=== PATIENT | female | born 1990 | race Caucasian/White ===

== ENCOUNTER 2017-11-21 10:20 | Inpatient (IN) ==
[2017-11-21 05:44] LABS: Bilirubin,Urine Negative (Negative); Blood,Urine Moderate (Negative); Clarity,Urine Turbid (Clear); Color,Urine Yellow (Yellow); Glucose,Urine (UA) Normal (Normal); Ketones,Urine Negative (Negative); Leukocyte Esterase,Urine Large (Negative); Nitrite,Urine Negative (Negative); PH,Urine 6.5 pH Units (5.0-8.0); Protein,Urine >=300 mg/dL (Neg-Trace); Specific Gravity,Urine 1.013 (1.010-1.025); Urobilinogen,Urine Normal (Normal)
[2017-11-21 05:47] LABS: Hyaline Casts,Urine None Seen per lpf (None-Few); WBC,Urine TNTC per hpf (0-3)
[2017-11-21 05:53] LABS: Amphetamine Screen,Urine Negative ng/mL (Cutoff=1000); Barbiturate Screen,Urine Negative ng/mL (Cutoff=200); Benzodiazepines Screen,Urine Negative ng/mL (Cutoff=200); Cannabinoid Screen,Urine Negative ng/mL (Cutoff = 50); Cocaine Screen,Urine Negative ng/mL (Cutoff= 300); Opiate Screen,Urine Negative ng/mL (Cutoff=300); Phencyclidine Screen,Urine Negative ng/mL (Cutoff=25)
[2017-11-21 05:57] LABS: Bacteria,Urine Few per hpf (None-Few)
[2017-11-21 05:58] LABS: Squamous Epithelial Cell,Urine Moderate per lpf (None-Few)
[2017-11-21 08:18] LABS: Basophils % 0.1 %; Hematocrit 29.3 % (35.3-44.9); Hemoglobin 9.8 g/dL (11.5-15.4); Immature Granulocytes % 0.7 % (0-4); Lymphocytes % 6.2 %; Mean Corpuscular HGB Conc 33.4 g/dL (31.6-35.5); Mean Corpuscular Volume 92.7 fL (83.0-100.0); Mean Platelet Volume 9.7 fL (9.4-12.4); Monocytes # 0.9 K/mcL (0.0-1.3); Monocytes % 5.6 %; Neutrophils # 14.3 K/mcL (1.6-8.9); Platelet Count 273 K/mcL (140-400); Red Blood Count 3.16 M/mcL (3.82-4.97); Red Cell Distribution Width 14.3 % (11.5-14.5); Segmented Neutrophils % 87.4 %
[~2017-11-21 10:20] MED LIST: *HR* Promethazine 25 MG/ML VIAL IVP PRN; Acetaminophen 325 MG TABLET PO PRN; Ondansetron 4 MG/2 ML VIAL IVP PRN; Ringers Solution, Lactated 1,000 ML IVC SCH; Ringers Solution, Lactated 500 ML IVC ONE; cefTRIAXone 1,000 MG in Water for inj. (sterile) 20 ML 10 ML IVP ONE
--- NOTE | 2017-11-21 12:37 | OB/GYN History & Physical ---
Date of Encounter: 11/21/17 Time of Encounter: 12:36 Assessment and Plan (1) 35 weeks gestation of Current visit: Yes Status: Acute (2) Pyelonephritis affecting in third trimester Current visit: Yes Status: Acute 1G rocephin q 24 Repeat labs in am PO pain meds Likely discharge home tomorrow History of Present Illness Chief complaint: flank pain HPI: Ms. Erwin is a 26 year old female at 35 weeks 5 days gestation with an EDB of 12/21/17 dated by early ultrasound who presents with sudden onset of flank pain that started overnight. She endorses good fm and denies ctx, lof, vb. She reports some pain with urination. She has had scant PNC but has been followed by Dr. Thomas through this . This has been uncomplicated. Past Med Surg Social Fam HX - Past Medical History Medical history: no medical history Psychiatric history: no psych history - Past Surgical History Surgical History: no surgical history - Social History Smoking Status: Current every day smoker Packs per day: 1 Smokeless Tobacco Status: No Alcohol use: none Drug use: none - Family History Father Adopted: No Family Member Ethnicity: Non- Living Status: Still Living Hx Family Cardiac Disorders: No Hx Family Respiratory Disorders: No Hx Family Cancer: Yes Hx Family GI Disorders: No Hx Family Genitourinary Disorders: No Hx Family Endocrine Disorder: No Hx Family Musculoskeletal Disorders: No Hx Family Neuromuscular Disorders: No Hx Family Neurologic Disorders: No Hx Family HEENT Disorders: No Hx Family Autoimmune Disorders: No Hx Family Reproductive Disorders: No Hx Family Psychosocial Disorders: No Hx Family Medical Disorders: No Obstetrical History - Pregnancies : 3 Para: 2 Term: 2 (# 1: 07/30/10 , normal spontaneous vaginal delivery (); # 2: , normal spontaneous vaginal delivery ()) : 0 Ab's: 0 Livin Medications and Allergies 3 Allergy/AdvReac Type Severity Reaction Status Date / Time No Known Allergies Allergy Verified 11/21/17 05:27 Review of System OB All systems PM: reviewed and no additional remarkable complaints except as stated Exam - Vital Signs Vital signs: Initial Vital Signs Resp 16 11/21/17 11:04 - Constitutional Constitutional: well developed, well nourished, average body habitus, mild distress - HEENT HEENT: PERRL - Neck Neck exam: full ROM - Lungs Respiratory exam: CTAB - Cardiovascular Cardiovascular exam: RRR, +S1, +S2 - Breasts Breast: bilateral: normal - Abdomen Abdomen: Present: bowel sounds normal, gravid, non tender - Extremities Extremities exam: normal capillary refill, normal inspection, radial pulses palpable and symmetrical - Uterus Uterus exam: Present: normal size, normal contour - Anus/Rectum Anus/Rectum: Present: normal perianal skin - Comments Comments: right flank pain with CVA tenderness Results Result Diagrams: 11/21/17 07:25 Abnormal lab results WBC 16.4 K/mcL (4.3-11.1) H D 11/21/17 07:25 RBC 3.16 M/mcL (3.82-4.97) L 11/21/17 07:25 Hgb 9.8 g/dL (11.5-15.4) L 11/21/17 07:25 Hct 29.3 % (35.3-44.9) L 11/21/17 07:25 Neutrophils # 14.3 K/mcL (1.6-8.9) H 11/21/17 07:25 Urine Clarity Turbid (Clear) A 11/21/17 05:39 Urine Protein >=300 mg/dL (Neg-Trace) H 11/21/17 05:39 Urine Blood Moderate (Negative) H 11/21/17 05:39 Ur Leukocyte Esterase Large (Negative) H 11/21/17 05:39 Urine Microscopic RBC 3-5 per hpf (0-3) H 11/21/17 05:39 Urine Microscopic WBC TNTC per hpf (0-3) H 11/21/17 05:39 Ur Squamous Epith Cells Moderate per lpf (None-Few) H 11/21/17 05:39 Ur Culture Indicated? YES (NO) A 11/21/17 05:39 All other labs normal. - VTE Reasons for not Prescribing Prophylaxis: Treatment not Indicated - Low risk for VTE
[2017-11-21] MEDS: *HR* OxyCODONE/APAP 5/325 TABLET PO PRN (19:55)
[2017-11-22] MEDS: *HR* OxyCODONE/APAP 5/325 TABLET PO PRN (00:14)
[2017-11-22 07:28] LABS: Basophils % 0.3 %; Eosinophils % 0.4 %; Hematocrit 24.7 % (35.3-44.9); Hemoglobin 7.9 g/dL (11.5-15.4); Immature Granulocytes % 0.4 % (0-4); Lymphocytes # 1.8 K/mcL (0.6-4.6); Lymphocytes % 26.3 %; Mean Corpuscular Hemoglobin 30.6 pg (28.0-33.3); Mean Corpuscular Volume 95.7 fL (83.0-100.0); Mean Platelet Volume 9.7 fL (9.4-12.4); Monocytes # 0.6 K/mcL (0.0-1.3); Monocytes % 8.3 %; Neutrophils # 4.4 K/mcL (1.6-8.9); Platelet Count 218 K/mcL (140-400); Red Blood Count 2.58 M/mcL (3.82-4.97); Red Cell Distribution Width 14.6 % (11.5-14.5); Segmented Neutrophils % 64.3 %
[2017-11-22] MEDS ORDERED: cefTRIAXone 1,000 MG in Water for inj. (sterile) 20 ML 10 ML IVP SCH (09:00)
[2017-11-22 09:08] VITALS: BP 100/63
--- NOTE | 2017-11-22 11:22 | Discharge Summary ---
Date of Encounter: 11/22/17 Time of Encounter: 11:22 - Discharge Diagnosis (1) 35 weeks gestation of Priority: Primary Status: Acute Comments: Follow up with Dr. Thomas as already scheduled PTL precautions given Discharge home today (2) Pyelonephritis affecting in third trimester Priority: Secondary Status: Acute Comments: UC showed no growth UTI will be treated with Keflex - Discharge Medications Prescriptions: cephALEXin [Keflex] 500 mg PO BID 10 Days #20 capsule Ferrous Sulfate 325 mg PO BID #60 tablet Home Medications: Ferrous Sulfate 325 mg PO BID #60 tablet 11/22/17 [Rx] cephALEXin [Keflex] 500 mg PO BID 10 Days #20 capsule 11/22/17 [Rx] Allergies/Adverse Reactions: 3 Allergy/AdvReac Type Severity Reaction Status Date / Time No Known Allergies Allergy Verified 11/21/17 05:27 Data Procedures and tests throughout hospitalization: Laboratory Tests 11/21/17 11/21/17 11/21/17 05:39 05:39 07:25 WBC 16.4 H D RBC 3.16 L Hgb 9.8 L Hct 29.3 L MCV 92.7 MCH 31.0 MCHC 33.4 RDW 14.3 Plt Count 273 MPV 9.7 Immature Gran % 0.7 Seg Neutrophils % 87.4 Lymphocytes % 6.2 Monocytes % 5.6 Eosinophils % 0.0 Basophils % 0.1 Neutrophils # 14.3 H Lymphocytes # 1.0 Monocytes # 0.9 Eosinophils # 0.0 Basophils # 0.0 Urine Color Yellow Urine Clarity Turbid A Urine pH 6.5 Ur Specific [place] 1.013 Urine Protein >=300 H Urine Glucose (UA) Normal Urine Ketones Negative Urine Blood Moderate H Urine Nitrite Negative Urine Bilirubin Negative Urine Urobilinogen Normal Ur Leukocyte Esterase Large H Urine Microscopic RBC 3-5 H Urine Microscopic WBC TNTC H Ur Squamous Epith Cells Moderate H Urine Bacteria Few Hyaline Casts None Seen Urine Yeast Test Not Performed Ur Culture Indicated? YES A Urine Opiates Screen Negative Ur Barbiturates Screen Negative Ur Phencyclidine Scrn Negative Ur Amphetamines Screen Negative U Benzodiazepines Scrn Negative Urine Cocaine Screen Negative U Marijuana (THC) Screen Negative Ur Drug Screen Interp See Below 11/22/17 06:54 WBC 6.9 D RBC 2.58 L Hgb 7.9 L D Hct 24.7 L MCV 95.7 MCH 30.6 MCHC 32.0 RDW 14.6 H Plt Count 218 MPV 9.7 Immature Gran % 0.4 Seg Neutrophils % 64.3 Lymphocytes % 26.3 Monocytes % 8.3 Eosinophils % 0.4 Basophils % 0.3 Neutrophils # 4.4 Lymphocytes # 1.8 Monocytes # 0.6 Eosinophils # 0.0 Basophils # 0.0 Urine Color Urine Clarity Urine pH Ur Specific [place] Urine Protein Urine Glucose (UA) Urine Ketones Urine Blood Urine Nitrite Urine Bilirubin Urine Urobilinogen Ur Leukocyte Esterase Urine Microscopic RBC Urine Microscopic WBC Ur Squamous Epith Cells Urine Bacteria Hyaline Casts Urine Yeast Ur Culture Indicated? Urine Opiates Screen Ur Barbiturates Screen Ur Phencyclidine Scrn Ur Amphetamines Screen U Benzodiazepines Scrn Urine Cocaine Screen U Marijuana (THC) Screen Ur Drug Screen Interp Labs on day of discharge: Labs from last 24 hours 11/22/17 06:54 WBC 6.9 D RBC 2.58 L Hgb 7.9 L D Hct 24.7 L MCV 95.7 MCH 30.6 MCHC 32.0 RDW 14.6 H Plt Count 218 MPV 9.7 Immature Gran % 0.4 Seg Neutrophils % 64.3 Lymphocytes % 26.3 Monocytes % 8.3 Eosinophils % 0.4 Basophils % 0.3 Neutrophils # 4.4 Lymphocytes # 1.8 Monocytes # 0.6 Eosinophils # 0.0 Basophils # 0.0 Date of admission: 11/21/17 10:20 Discharging clinician: Leena Lawton Anticipated date of discharge: 11/22/17 - Patient Status Disposition: Home, Self-Care Condition: Good Functional capacity at discharge: independent ambulation Overall status at discharge: patient is progressing back to baseline - Discharge Instructions Follow Up With: Maurice Thomas DO [Partnered Physician] - - Diet and Activity Activity: increase activity as tolerated Diet: regular diet 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 Erwin was admitted with right flank pain with pyelonephritis. UC was run and showed no growth. Flank pain persists so patient will continue outpatient antibiotics for ten days. Incidentally it was discovered that her hgb is low so her iron will be increased to BID. Time Attestation: Total time spent providing and/or coordinating discharge services: Time Spent: Less than 30 minutes Exam - Constitutional Vitals: Temp Pulse Resp BP Pulse Ox 97.5 F L 74 16 100/63 97 11/22/17 09:07 11/22/17 09:07 11/22/17 09:13 11/22/17 09:07 11/22/17 09:07 General appearance IM: A&O X 3 - Respiratory Respiratory exam: Present: CTAB - Cardiovascular Cardiovascular exam IM: Present: RRR, +S1, +S2 - GI/Abdominal GI/Abdominal exam IM: normal bowel sounds, soft, no peritoneal signs - Rectal Rectal exam: deferred - Additional comments: Right flank pain persists but is not as bad. - Extremities Exam Extremities exam IM: Present: normal capillary refill, normal inspection, radial pulses palpable and symmetrical - Neurological Exam Neurological exam: alert, CN II-XII intact, normal gait, oriented X3, reflexes normal, no focal deficits, strengths equal and symetr throughout - VTE Reasons for not Prescribing Prophylaxis: Treatment not Indicated - Low risk for VTE
== END 2017-11-22 11:00 | disposition home or self-care (01) | DRG 566 ==
LOC: 1NENULAB → 1NENUOBS 10:59
PROVIDERS: ADMIT Advanced Practice Midwife; ATTEND Advanced Practice Midwife

== ENCOUNTER 2017-12-13 08:00 | Inpatient (IN) ==
[2017-12-13] MEDS ORDERED: Metoclopramide 10 MG/2 ML VIAL IVP PRN (09:21)
[2017-12-13] MEDS ORDERED: Naloxone 0.4 MG/ML INJ IVP PRN ×2 (09:21→15:13)
[2017-12-13] MEDS ORDERED: Famotidine 20 MG/2 ML VIAL IVP PRN (09:21)
[2017-12-13] MEDS ORDERED: *HR* Nalbuphine 10 MG/ML AMPUL IVP PRN (09:21)
[2017-12-13] MEDS ORDERED: miSOPROStol 100 MCG TABLET PO SCH (09:45)
--- NOTE | 2017-12-13 09:51 | OB/GYN History & Physical ---
Date of Encounter: 12/13/17 Time of Encounter: 09:48 Assessment and Plan (1) and not yet delivered in third trimester Current visit: Yes Status: Acute (2) 39 weeks gestation of Current visit: Yes Status: Acute (3) Encounter for elective induction of labor Current visit: Yes Status: Acute Patient will be induced with Cytotec by mouth will receive an epidural when needed plan is to anticipate vaginal delivery History of Present Illness HPI: Ms. Erwin is a 27 year old female 3 para 2 at 39-0/7 weeks who presented for induction of labor segment term with favorable cervix. Patient was recently seen cervix was favorable at 3-4 cm. Patient had an ultrasound done 2 weeks ago baby weighed 2961 g which was at the 57th percentile with an JOYCE of 17 cm. Patient was advised we would bring her to labor and delivery since she was favorable and we could induce her at 39 weeks. She is having occasional contractions but nothing she can put up time on and she is not leaking any fluid no vaginal bleeding. Patient is A+, rubella positive, Varicella positive, GBS negative. Past Med Surg Social Fam HX - Past Medical History Source: patient, old records reviewed Medical history: no medical history Psychiatric history: no psych history - Past Surgical History Surgical History: no surgical history - Social History Smoking Status: Current every day smoker Smokeless Tobacco Status: No Alcohol use: none Drug use: none Occupational status: employed Current living situation: Home - Independent Activity Level: Independent ambulation Recent Out of Country Travel Within the Last 8 Weeks: No Exposure or Possible Exposure to Illness During Travel: No - Family History Father Adopted: No Family Member Ethnicity: Non- Living Status: Still Living Hx Family Cardiac Disorders: No Hx Family Respiratory Disorders: No Hx Family Cancer: Yes (esoph. [place]) Hx Family GI Disorders: No Hx Family Endocrine Disorder: No Hx Family Neuromuscular Disorders: No Hx Family Neurologic Disorders: No Hx Family HEENT Disorders: No Hx Family Autoimmune Disorders: No - Additional Family History Additional family history: Family history noncontributory Obstetrical History - Pregnancies : 3 Para: 2 Term: 2 : 0 Ab's: 0 Livin Medications and Allergies Ferrous Sulfate 325 mg PO BID #60 tablet 11/22/17 [Rx] Ondansetron HCl [Zofran] 4 mg PO Q8HR PRN 12/13/17 [History] Vit/Iron Fumarate/FA [ Tablet] 1 each PO DAILY 12/13/17 [ History] 3 Allergy/AdvReac Type Severity Reaction Status Date / Time No Known Allergies Allergy Verified 11/21/17 05:27 Review of System OB All systems PM: reviewed and no additional remarkable complaints except as stated Exam - Constitutional Constitutional: well developed, well nourished, no acute distress, average body habitus - HEENT HEENT: EOMI, PERRL, Mucus Membranes Moist - Neck Neck exam: full ROM - Lungs Respiratory exam: CTAB - Cardiovascular Cardiovascular exam: RRR - Abdomen Abdomen: Present: bowel sounds normal, gravid ( heart tones 140s reactive occasional contractions seen) Results All other labs normal. - VTE Reasons for not Prescribing Prophylaxis: Medical contraindication
[2017-12-13 10:23] LABS: Basophils % 0.1 %; Eosinophils % 0.1 %; Hematocrit 31.1 % (35.3-44.9); Hemoglobin 10.1 g/dL (11.5-15.4); Immature Granulocytes % 0.6 % (0-4); Lymphocytes # 1.4 K/mcL (0.6-4.6); Lymphocytes % 20.9 %; Mean Corpuscular HGB Conc 32.5 g/dL (31.6-35.5); Mean Corpuscular Hemoglobin 30.7 pg (28.0-33.3); Mean Corpuscular Volume 94.5 fL (83.0-100.0); Mean Platelet Volume 9.5 fL (9.4-12.4); Monocytes # 0.4 K/mcL (0.0-1.3); Monocytes % 5.4 %; Platelet Count 278 K/mcL (140-400); Red Blood Count 3.29 M/mcL (3.82-4.97); Red Cell Distribution Width 16.5 % (11.5-14.5); Segmented Neutrophils % 72.9 %
--- NOTE | 2017-12-13 12:38 | OB Labor Progress Note ---
Date of Encounter: 12/13/17 Time of Encounter: 12:36 Labor Progress Note - Subjective Subjective: Patient states not really feeling the contractions still having good movement - Cervix Cervix: 3/80/-2 AROM light mec noted - Heart Tones Heart Tones: heart tones 140s reactive - [place]: Contractions every 2 minutes irregular - Plan Plan: We will continue current care if she does not make any cervical change after 2 hours we will augment with Pitocin plan is to anticipate a vaginal delivery
[2017-12-13] MEDS: Ringers Solution, Lactated 1,000 ML IVC SCH ×2 (12:42→17:57)
[2017-12-13 13:26] LABS: Amphetamine Screen,Urine Negative ng/mL (Cutoff=1000); Barbiturate Screen,Urine Negative ng/mL (Cutoff=200); Benzodiazepines Screen,Urine Negative ng/mL (Cutoff=200); Cannabinoid Screen,Urine Negative ng/mL (Cutoff = 50); Cocaine Screen,Urine Negative ng/mL (Cutoff= 300); Opiate Screen,Urine Negative ng/mL (Cutoff=300); Phencyclidine Screen,Urine Negative ng/mL (Cutoff=25)
[2017-12-13] MEDS ORDERED: Ondansetron 4 MG/2 ML VIAL IVP PRN (15:13)
[2017-12-13] MEDS ORDERED: Bupivacaine-MPF 0.25% 10 ML VIAL EP ONE (15:13)
[2017-12-13] MEDS ORDERED: EPHEDrine 50 MG/ML VIAL IVP PRN (15:13)
[2017-12-13] MEDS ORDERED: *HR* FentaNYL (PF) 100 MCG/2 ML VIAL EP ONE (15:13)
[2017-12-13] MEDS ORDERED: *HR* Ropivacaine/PF 0.2% 20 ML VIAL EP ONE (15:13)
[2017-12-13] MEDS ORDERED: Epidural Premix (fent/bupiv) 110 ML EP SCH (15:15)
[2017-12-13] MEDS ORDERED: Epidural Premix (fent/bupiv) 110 ML EP ONE (15:16)
[2017-12-13] MEDS ORDERED: Lidocaine -MPF 1% 5 ML AMPUL ONE (15:16)
--- NOTE | 2017-12-13 15:55 | Anesthesia Evaluation PreOp ---
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 Any Significant HX Other Medical History: Denies Any Significant HX Anesthesia History: No Prior Anesthetic Complications, Past Anesthesia (Fatty cyst removal from lower right abdomen, wisdom teeth extraction, without difficulty) : Yes Alcohol Use: none Drug use: none Medications and Allergies Ferrous Sulfate 325 mg PO BID #60 tablet 11/22/17 [Rx] Ondansetron HCl [Zofran] 4 mg PO Q8HR PRN 12/13/17 [History] Vit/Iron Fumarate/FA [ Tablet] 1 each PO DAILY 12/13/17 [ History] 3 Allergy/AdvReac Type Severity Reaction Status Date / Time No Known Allergies Allergy Verified 11/21/17 05:27 - Meds/Allergy Pre-op Review Medications Reviewed: Yes Allergies Reviewed: Yes Beta Blockers on Current Med List: No Anesthesia Results - Labs 12/13/17 09:24 Anesthesia Exam BP 130/85 P 91 R 18 T97.1 Height: 5'3" Weight: 73kg NPO (# of Hours): 2 Pain Scale: 5 Pain Scale Used: Numeric (1 - 10) - HEENT Pupil (Motor): Pupils equal Mallampati: II Teeth: Normal Oral Opening: Greater than 3 - RECONCILIATION ANALYST LOC: Oriented RECONCILIATION ANALYST Motor: Normal RUE, Normal LUE, Normal RLE, Normal LLE, Normal Face RECONCILIATION ANALYST Sensory: Normal: RUE, LUE, RLE, LLE, Face - Cardiac Rhythm: Regular Murmur: None JVD: No Carotid Bruit: No - Pulmonary Breath Sounds: bilateral Clear Respiratory Effort: Symmetrical Anesthesia Assess/Plan ASA Score: 2 Modified Holstein Scale for Level of Consciousness: Cooperative, oriented, and tranquil Anesthetic Plan: Regional Monitoring Plan: Standard Monitors Recovery Plan: Other
--- NOTE | 2017-12-13 16:02 | Anesthesia Procedures ---
Date of Encounter: 12/13/17 Time of Encounter: 15:21 Procedures: Anesthesia - Epidural/Spinal Patient ID/Chart reviewed: Yes Patient examined: Yes OB Eval: Gestational age: 39 OB Eval: : 3 OB Eval: Hx Para: 2 OB Eval: Dilated at (cm): 4 OB Eval: Contractions: Non-stressed pattern Consent Obtained: Yes Supplemental Oxygen: None/Room Air Site Prep: Aseptic Technique, Sterile prep and drape, Povidone-Iodine 1% Patient position: upright Local Anesthetic: Lidocaine 1% Amount of Local Anesthetic used: 3 Touhy Needle Gauge: 18 Touhy Needle Depth (cm): 4 Catheter Depth at Skin (cm): 13 Test Dose (1.5% Lido + Epi): Volume given (mls): 3 Test Dose Result: Negative Loading Dose: 0.25% Marcaine (mls): 7 Loading Dose: Fentanyl (mcg): 100 Loading Dose Administered: Thru Catheter Infusion Med: 0.125% Bupivacaine w/ 2 mcg/ml Fentanyl Infusion Rate (mls/hr): [address]: Tegaderm, Tape Interspace Used: L4-L5 Loss of Resistance (SARAH): Yes Blood: No CSF: No Paresthesia: No Procedure: PEG placed 1st pass in upright position without any immediate noted complications. VSS Vitals + FHT's: 1521 BP 130/85 P 91 R 18 1547 BP 113/78 P 84 R 16 FHT 130s
[2017-12-13] MEDS ORDERED: Oxytocin 20 units/ LR 1000 mL 20 UNIT/1,000 ML BAG IVC SCH ×2 (16:15→22:04)
--- NOTE | 2017-12-13 18:10 | OB Labor Progress Note ---
Date of Encounter: 12/13/17 Time of Encounter: 18:08 Labor Progress Note - Subjective Subjective: Patient still very comfortable with epidural - Cervix Cervix: 5/80/-1 - Heart Tones Heart Tones: heart tones 120s with some early decelerations noted - [place]: IUPC placed contractions irregular every 2-4 minutes - Plan Plan: Continue current care plan is to anticipate vaginal delivery
--- NOTE | 2017-12-13 21:09 | OB/GYN Procedure Note ---
Delivery - Delivery Date: 12/13/17 Provider: Maurice Thomas Intrapartum events: none Delivery induction: misoprostol Delivery augmentation: rupture of membranes, pitocin Delivery monitor: external FHT, external uterine, internal uterine Anesthesia: epidural Quantitated Blood Loss: 100 - (s) Infant A Delivery Date: 12/13/17 Infant Delivery Time: 20:46 Presentation: vertex Position: LENIN Route of delivery: Gender: Male Viability: Viable Pounds: 6 Ounces: 2 Weight Gram: 2.775 kg at 1 minute: 9 at 5 mins: 9 Shoulder Dystocia: not encountered Specimens collected: cord blood Placenta: spontaneous Cord: 3 umbilical vessels - Repair Episiotomy: none Laceration Description: Periurethral (right) - Complications Delivery complications: none Delivery comments: Patient is a 27-year-old 3 para 2 at 39-0/7 weeks was brought in for induction later second term with favorable cervix patient was 3 cm on admission oral Cytotec was given. Patient was artificially ruptured when she was 4 cm with meconium-stained fluid. she needed to be augmented with Pitocin. Patient progressed appropriately she became complete she pushed approximately 20 minutes delivering a viable male infant in right occiput anterior presentation at 2045. There was no nuchal cord, no meconium, was bulb suctioned on the abdomen. Apgars were 9 at 1 minute, 9 at 5 minutes, weight was 6 lbs. 2 oz. placenta was then delivered spontaneously with a three- vessel cord, transliterator Dr. Thomas, anesthesia epidural, estimated blood loss 100 mL. Patient had a right periurethral laceration repaired with 4-0 Vicryl in usual fashion. Cervix and vagina was visualized intact. Patient tolerated the delivery well she will be observed 2 hours before being taken postpone floor.
[2017-12-13] MEDS ORDERED: Oxytocin 20 units/ LR 1000 mL 20 UNIT/1,000 ML BAG IVC ONE (22:04)
[2017-12-13] MEDS ORDERED: Acetaminophen 325 MG TABLET PO PRN (22:04)
[2017-12-13] MEDS ORDERED: Measles/Mumps/Rubella Vacc 0.5 ML VIAL SQ PRN (22:04)
[2017-12-13] MEDS: Ibuprofen 600 MG TABLET PO PRN (23:34)
[2017-12-14 07:14] LABS: Basophils % 0.2 %; Eosinophils % 0.2 %; Hematocrit 27.5 % (35.3-44.9); Immature Granulocytes % 0.7 % (0-4); Lymphocytes # 1.5 K/mcL (0.6-4.6); Lymphocytes % 17.8 %; Mean Corpuscular HGB Conc 32.7 g/dL (31.6-35.5); Mean Corpuscular Hemoglobin 31.1 pg (28.0-33.3); Mean Corpuscular Volume 95.2 fL (83.0-100.0); Mean Platelet Volume 10.2 fL (9.4-12.4); Monocytes # 0.5 K/mcL (0.0-1.3); Monocytes % 6.3 %; Neutrophils # 6.3 K/mcL (1.6-8.9); Platelet Count 201 K/mcL (140-400); Red Blood Count 2.89 M/mcL (3.82-4.97); Red Cell Distribution Width 16.4 % (11.5-14.5); Segmented Neutrophils % 74.8 %
--- NOTE | 2017-12-14 08:30 | OB/GYN Progress Note ---
Date of Encounter: 12/14/17 Time of Encounter: 08:24 - Assessment and Plan (1) Vaginal delivery Current Visit: Yes Status: Acute Continue routine care Would like a breast pump Rx Desires Nexplanon insert prior to discharge Considering discharge this evening after 24 hours; patient will notify me if she desires to go home prior to AM. OK to discharge at 24 hours. (2) Mother currently breast-feeding Current Visit: Yes Status: Acute (3) Difficulty of mother performing Current Visit: Yes Status: Acute (4) Contraception management Current Visit: Yes Status: Acute Nexplanon insertion desired today. Qualifiers: Contraceptive encounter type: initial prescription Contraceptive type: implantable subdermal Qualified Code(s): Z30.017 - Encounter for initial prescription of implantable subdermal contraceptive Subjective - Subjective Principal diagnosis: S/P Vaginal Delivery Interval history: S/P Vaginal delivery Day 1 Pain is well controlled Lochia is moderate and without clots Tolerating regular diet; passing flatus and voiding without difficulty. well Desires Nexplanon placement today Considering discharge home tonight. Patient reports: appetite normal, voiding normally, pain well controlled, ambulating normally : doing well, nursing well Objective - Latest Vital Signs Latest vital signs: Vital Signs Temp Pulse Resp BP Pulse Ox 12/14/17 01:41 97.6 F 81 16 114/70 97 12/14/17 00:45 97.9 F 78 16 104/67 98 12/13/17 23:30 98.1 F 69 16 119/77 100 Intake and Output 12/13/17 12/14/17 12/14/17 23:59 07:59 15:59 Intake Total 1000 / 1000 700 / 700 Output Total 600 / 600 100 / 100 Balance 400 / 400 600 / 600 Intake: IV Fluids 1000 / 1000 Lactated Ringers 1,000 ML @ 125 1000 / 1000 mls/hr IVC .Q8H GYPSY Rx#: [id number] Oral 700 / 700 Output: Urine 100 / 100 Catheter 600 / 600 Other: Weight 71.2 kg 70.261 kg Patient Weight 12/14/17 23:59 Weight 70.261 kg - Exam Lungs: bilateral: normal Chest: Normal S1, Normal S2 Extremities: Present: normal Abdomen: Present: normal appearance, soft, gravid Uterus: Present: normal, firm Uterus Position: At Umbilicus, Midline - Labs Labs: Laboratory Results - last 24 hr 12/13/17 12/13/17 12/13/17 09:24 09:43 12:15 WBC 6.8 RBC 3.29 L Hgb 10.1 L Hct 31.1 L MCV 94.5 MCH 30.7 MCHC 32.5 RDW 16.5 H Plt Count 278 MPV 9.5 Immature Gran % 0.6 Seg Neutrophils % 72.9 Lymphocytes % 20.9 Monocytes % 5.4 Eosinophils % 0.1 Basophils % 0.1 Neutrophils # 5.0 Lymphocytes # 1.4 Monocytes # 0.4 Eosinophils # 0.0 Basophils # 0.0 Urine Opiates Screen Negative Ur Barbiturates Screen Negative Ur Phencyclidine Scrn Negative Ur Amphetamines Screen Negative U Benzodiazepines Scrn Negative Urine Cocaine Screen Negative U Marijuana (THC) Screen Negative Ur Drug Screen Interp See Below Hep Bs Antigen Nonreactive 12/14/17 06:46 WBC 8.4 RBC 2.89 L Hgb 9.0 L Hct 27.5 L MCV 95.2 MCH 31.1 MCHC 32.7 RDW 16.4 H Plt Count 201 MPV 10.2 Immature Gran % 0.7 Seg Neutrophils % 74.8 Lymphocytes % 17.8 Monocytes % 6.3 Eosinophils % 0.2 Basophils % 0.2 Neutrophils # 6.3 Lymphocytes # 1.5 Monocytes # 0.5 Eosinophils # 0.0 Basophils # 0.0 Urine Opiates Screen Ur Barbiturates Screen Ur Phencyclidine Scrn Ur Amphetamines Screen U Benzodiazepines Scrn Urine Cocaine Screen U Marijuana (THC) Screen Ur Drug Screen Interp Hep Bs Antigen
[2017-12-14] MEDS ORDERED: Etonogestrel 68 MG IMPLANT IL ONE (08:35)
[2017-12-14] MEDS ORDERED: Lidocaine/EPI 1:100k 1% 30 ML VIAL INFILT ONE (08:36)
[2017-12-14] MEDS: Prenatal Vit/FA 1 EACH TABLET PO SCH (08:49)
[2017-12-14] MEDS: Ibuprofen 600 MG TABLET PO PRN ×2 (08:50→20:44)
[2017-12-14] MEDS ORDERED: NON-FORMULARY MEDICATION 1 EACH EACH (Prenatal Vit/Iron Fumarate/Fa [Prenatal Tablet] 1 EA PO SCH (09:00)
[2017-12-14] MEDS ORDERED: Ondansetron ODT 4 MG TAB.RAPDIS SL ONE (09:43)
--- NOTE | 2017-12-14 15:20 | OB/GYN Procedure Note ---
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 Patient was placed in the supine position with arm in the appropriate position. Betadine was used to prep the arm in a sterile fashion. 1% lidocaine with epinephrine was used to anesthetize. The implant was inserted in the subcutaneous tissue to the appropriate length then the Nexplanon was released. Both myself and patient can palpate the huseyin without difficulty. Steri-Strips and a pressure dressing was applied. Patient tolerated the procedure well. She was instructed on wound care to follow up PRN.
[2017-12-15] MEDS: Prenatal Vit/FA 1 EACH TABLET PO SCH (08:20)
[2017-12-15 08:26] VITALS: BP 111/74
--- NOTE | 2017-12-15 09:57 | Discharge Summary ---
Date of Encounter: 12/15/17 Time of Encounter: 09:55 - Discharge Diagnosis (1) Contraception management Priority: Secondary Status: Acute Comments: Nexplanon placed per Beatrice Engel CNM on 12/14/2017 Qualifiers: Contraceptive encounter type: initial prescription Contraceptive type: implantable subdermal Qualified Code(s): Z30.017 - Encounter for initial prescription of implantable subdermal contraceptive (2) Mother currently breast-feeding Priority: Secondary Status: Acute Comments: support prn (3) Vaginal delivery Priority: Primary Status: Acute Comments: Continue routine care follow up with Dr. Thomas in 4-6 weeks - Discharge Medications Prescriptions: Breast Pump [BREAST PUMP] 1 each .ROUTE AD #1 each Home Medications: Ferrous Sulfate 325 mg PO BID #60 tablet 11/22/17 [Rx] Ondansetron HCl [Zofran] 4 mg PO Q8HR PRN 12/13/17 [History] Vit/Iron Fumarate/FA [ Tablet] 1 each PO DAILY 12/13/17 [ History] Breast Pump [BREAST PUMP] 1 each .ROUTE AD #1 each 12/14/17 [Rx] Allergies/Adverse Reactions: 3 Allergy/AdvReac Type Severity Reaction Status Date / Time No Known Allergies Allergy Verified 11/21/17 05:27 Data Procedures and tests throughout hospitalization: Laboratory Tests 12/13/17 12/13/17 12/13/17 09:24 09:43 12:15 WBC 6.8 RBC 3.29 L Hgb 10.1 L Hct 31.1 L MCV 94.5 MCH 30.7 MCHC 32.5 RDW 16.5 H Plt Count 278 MPV 9.5 Immature Gran % 0.6 Seg Neutrophils % 72.9 Lymphocytes % 20.9 Monocytes % 5.4 Eosinophils % 0.1 Basophils % 0.1 Neutrophils # 5.0 Lymphocytes # 1.4 Monocytes # 0.4 Eosinophils # 0.0 Basophils # 0.0 Urine Opiates Screen Negative Ur Barbiturates Screen Negative Ur Phencyclidine Scrn Negative Ur Amphetamines Screen Negative U Benzodiazepines Scrn Negative Urine Cocaine Screen Negative U Marijuana (THC) Screen Negative Ur Drug Screen Interp See Below Hep Bs Antigen Nonreactive 12/14/17 06:46 WBC 8.4 RBC 2.89 L Hgb 9.0 L Hct 27.5 L MCV 95.2 MCH 31.1 MCHC 32.7 RDW 16.4 H Plt Count 201 MPV 10.2 Immature Gran % 0.7 Seg Neutrophils % 74.8 Lymphocytes % 17.8 Monocytes % 6.3 Eosinophils % 0.2 Basophils % 0.2 Neutrophils # 6.3 Lymphocytes # 1.5 Monocytes # 0.5 Eosinophils # 0.0 Basophils # 0.0 Urine Opiates Screen Ur Barbiturates Screen Ur Phencyclidine Scrn Ur Amphetamines Screen U Benzodiazepines Scrn Urine Cocaine Screen U Marijuana (THC) Screen Ur Drug Screen Interp Hep Bs Antigen Date of admission: 12/13/17 08:48 Primary care physician: PCP [facility] Consults: 12/13/17 22:04 Consult to Nail Machine Operator [CONS] Routine Comment: Vaginal delivery, consult needed Consult to Medicare Interviewer [CONS] Routine Reason for SW Consult: past history drug use, positive amphetamine on past UDS Discharging clinician: Pema Walker Anticipated date of discharge: 12/15/17 - Patient Status Disposition: Home, Self-Care Condition: Good Functional capacity at discharge: independent ambulation - Discharge Instructions Follow Up With: NONE,PCP [Primary Care Provider] - Maurice Thomas DO [Partnered Physician] - - Diet and Activity Activity: increase activity as tolerated Diet: regular diet Hospital Course Reason for admission: induction of labor Delivery: Episiotomy: none Other procedures: none complications: none Discharge diagnosis: IUP at term delivered baby: male (breast feeding) Time Attestation: Total time spent providing and/or coordinating discharge services: Time Spent: Less than 30 minutes Exam - Constitutional Vitals: Temp Pulse Resp BP Pulse Ox 97.8 F 58 16 111/74 97 12/15/17 07:30 12/15/17 07:30 12/15/17 07:30 12/15/17 07:30 12/14/17 20:20 General appearance IM: A&O X 3, pleasant, answers questions appropriately - Respiratory Respiratory exam: Present: CTAB - Cardiovascular Cardiovascular exam IM: Present: RRR, +S1, +S2 - GI/Abdominal GI/Abdominal exam IM: normal bowel sounds - Uterine Tone: Firm Uterus Position: At Umbilicus, Midline - Extremities Exam Extremities exam IM: Present: full ROM, normal capillary refill, normal inspection - Neurological Exam Neurological exam: alert, oriented X3, reflexes normal
== END 2017-12-15 11:48 | disposition home or self-care (01) | DRG 560 ==
LOC: 1NENULAB 08:48 → 1NENUOBS 23:34
PROVIDERS: ADMIT Obstetrics & Gynecology; ATTEND Obstetrics & Gynecology